=== PATIENT | female | born 1975 | race African-American/Black ===

== ENCOUNTER 2017-02-12 13:26 | Outpatient (CLI) | payer OTHER ==
--- NOTE | 2017-02-12 17:40 | RAD ---
LUMBAR SPINE 3 VIEWS: Date: )02/12/17 HISTORY: Low back pain. FINDINGS: There are five lumbar-type vertebrae. Pedicles are intact. Vertebral body height and alignment are m aintained. Mild osteophytosis is most pronounced at the lower thoracic spine. No acute fracture or d islocation are evident. IMPRESSION: No acute osseous abnormalities are demonstrated. POS: [facility]
== END 2017-02-12 13:27 | disposition home or self-care (01) ==
LOC: NAV RAD 13:26
PROVIDERS: ATTEND Family Medicine
DX: M54.9 Dorsalgia, unspecified (principal); R20.0 Anesthesia of skin; R26.89 Other abnormalities of gait and mobility
CPT/HCPCS: 72100

== ENCOUNTER 2017-12-02 05:59 | Emergency (ER) | payer OTHER, SELFPAY | END 2017-12-02 07:00 | disposition home or self-care (01) | LOC: NAV ERS 05:59 | DX: T81.4XXA Infection following a procedure, initial encounter (principal); I10 Essential (primary) hypertension; F17.210 Nicotine dependence, cigarettes, uncomplicated | CPT/HCPCS: 87070; 87077; 87186; 87205; 99283 ==

== ENCOUNTER 2017-12-09 11:09 | Outpatient (CLI) | payer OTHER ==
--- NOTE | 2017-12-09 13:36 | RAD ---
FOUR VIEWS CERVICAL SPINE: 12/09/2017 HISTORY: Injury. Chronic pain. FINDINGS: There is disk space narrowing with posterior and anterior osteophyte formation at C4-C5. There is st raightening of the normal cervical lordosis. No prevertebral soft tissue swelling. The open-mouth o dontoid view demonstrates a normal appearing dens and C1-C2 articulation. The cervicothoracic juncti on is intact on the lateral Swimmer's view. 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 No acute osseous abnormality. If there are radicular s ymptoms, MRI advised. POS: [facility]
== END 2017-12-09 11:10 | disposition home or self-care (01) ==
LOC: NAV RAD 11:09
PROVIDERS: ATTEND Family Medicine
DX: G89.29 Other chronic pain (principal); M47.892 Other spondylosis, cervical region
CPT/HCPCS: 72040